=== PATIENT | male | born 1960 | race Hispanic/Latino ===

== ENCOUNTER 2020-09-16 15:13 | Emergency (ER) | payer SELFPAY ==
--- NOTE | 2020-09-16 15:58 | Event Note ---
ED Screening Note Date of service: 09/16/20 Time: 15:56 ED Screening Note: 59-year-old -[place] Citizen male presents to the emergency room for 2-week history of abdominal pain and constipation. Patient also admits to urinary retention denies any hematuria denies any penile discharge. Does report rectal pain pain but hard stool. He does have an appointment with a new provider on 09/30/2020. He states he is on blood pressure medication but unaware the name. His last prescribed by Patrick in [place]. Patient states he has tried [id number] milk of magnesia and Clair-[place]. This initial assessment/diagnostic orders/clinical plan/treatment(s) is/are subject to change based on patients health status, clinical progression and re- assessment by fellow clinical providers in the ED. Further treatment and workup at subsequent clinical providers discretion. Patient/guardian urged not to elope from the ED as their condition may be serious if not clinically assessed and managed. Initial orders include:
--- NOTE | 2020-09-16 16:42 | XRay Report ---
XR abdomen 1V ap INDICATION / CLINICAL INFORMATION: abd pain with constipation.. COMPARISON: None available. FINDINGS: TUBES / LINES: None. BOWEL GAS PATTERN: Nonobstructive bowel gas pattern. FREE AIR / EXTRALUMINAL GAS: None seen. ADDITIONAL FINDINGS: No significant additional findings. IMPRESSION: 1. No significant abnormality. Signer Name: Roge Cazares MD Signed: 09/16/2020 4:38 PM Workstation Name: [id number]
[2020-09-16 17:12] LABS: Basophils % (Auto) 0.7 % (0.0-1.8); Eosinophils # (Auto) 0.4 K/mm3 (0.0-0.4); Eosinophils % (Auto) 5.7 % (0.0-4.3); Hematocrit 47.1 % (35.5-45.6); Hemoglobin 15.9 gm/dl (11.8-15.2); Lymphocytes # (Auto) 2.2 K/mm3 (1.2-5.4); Lymphocytes % (Auto) 34.9 % (13.4-35.0); Mean Corpuscular HGB Conc 34 % (32-34); Mean Corpuscular Volume 91 fl (84-94); Monocytes # (Auto) 0.6 K/mm3 (0.0-0.8); Platelet Count 251 K/mm3 (140-440); Red Cell Distribution Width 14.1 % (13.2-15.2)
[2020-09-16 17:24] LABS: Albumin 4.5 g/dL (3.9-5); Calcium 9.6 mg/dL (8.4-10.2)
--- NOTE | 2020-09-16 19:22 | Emergency Department Report ---
HPI - General Chief Complaint: Abdominal Pain Time Seen by Provider: 09/16/20 19:09 - [facility] HPI: Room 35 The patient is a 59-year-old male present with a chief complaint of abdominal pain. Patient states he has had intermittent right-sided abdominal pain for the past year or so. Patient states he has not yet seen a physician about the symptoms. The patient states over the past 1.5 weeks the pain is returned and intermittent. Patient denies nausea vomiting or fever. Patient denies dysuria. Patient states his last bowel movement occurred yesterday and it was loose stool. The patient states the day before there was formed stool. Patient nuha munroe gives his pain score of 2/10 ED Past Medical Hx - Past Medical History Previous Medical History?: Yes Hx Hypertension: Yes - Surgical History Past Surgical History?: No - Family History Family history: no significant - Social History Smoking Status: Current Every Day Smoker (1/3 pack/day) Substance Use Type: Alcohol (Occasion), Marijuana - Medications Home Medications: Home Medications Medication Instructions Recorded Confirmed Last Taken Type Docusate Sodium [Colace] 100 mg PO BID PRN #30 capsule 09/16/20 Unknown Rx traMADoL [Ultram] 50 mg PO Q6HR PRN #10 tablet 09/16/20 Unknown Rx ED Review of Systems ROS: Stated complaint: STOMACH PROBLEM Other details as noted in HPI Constitutional: denies: fever Eyes: denies: eye pain ENT: denies: throat pain Respiratory: no symptoms reported Cardiovascular: denies: chest pain Endocrine: no symptoms reported Gastrointestinal: abdominal pain. denies: nausea, vomiting, diarrhea Genitourinary: denies: dysuria Musculoskeletal: denies: back pain Neurological: denies: headache Physical Exam - Physical Exam Vital Signs: Vital Signs 09/16/20 15:42 Temperature 98.8 F Pulse Rate 74 Respiratory 18 Rate Blood Pressure 161/105 O2 Sat by Pulse 96 Oximetry Physical Exam: GENERAL: The patient is well-developed well-nourished male lying on stretcher not appearing to be in acute distress. [] HEENT: Normocephalic. Atraumatic. Extraocular motions are intact. Patient has moist mucous membranes. NECK: Supple. Trachea midline CHEST/LUNGS: Clear to auscultation. There is no respiratory distress noted. HEART/CARDIOVASCULAR: Regular. There is no tachycardia. There is no gallop rub or murmur. ABDOMEN: Abdomen is soft, with trace discomfort to palpation in the right lower quadrant. There is no rebound or guarding. Patient has normal bowel sounds. There is no abdominal distention. SKIN: There is no rash. There is no edema. There is no diaphoresis. NEURO: The patient is awake, alert, and oriented. The patient is cooperative. The patient has no focal neurologic deficits. The patient has normal speech MUSCULOSKELETAL: There is no CVA tenderness. There is no evidence of acute injury. ED Course Vital Signs 09/16/20 15:42 Temperature 98.8 F Pulse Rate 74 Respiratory 18 Rate Blood Pressure 161/105 O2 Sat by Pulse 96 Oximetry ED Medical Decision Making - Lab Data Result diagrams: 09/16/20 16:41 09/16/20 16:41 - Radiology Data Radiology results: report reviewed (CT abdomen pelvis), image reviewed (CT abdomen pelvis) Findings [facility] [address] [place] [address] Cat Scan Report Signed Patient: DELIA TAI MR#: [id number] : 1960 Acct:[id number] Age/Sex: 59 / M ADM Date: 09/16/20 Loc: ED Attending Dr: Ordering Physician: JOHN AMADOR MD Date of Service: 09/16/20 Procedure(s): CT abdomen pelvis w con Accession Number(s): [id number] cc: JOHN AMADOR MD CT abdomen pelvis w con INDICATION / CLINICAL INFORMATION: Right lower quadrant abdominal pain. TECHNIQUE: Axial CT imaging of abdomen and pelvis was obtained with IV contrast. Coronal and sagittal reformatted imaging obtained and reviewed. All CT scans at this location are performed using CT dose reduction for ALARA by means of automated exposure control. COMPARISON: None available. FINDINGS: CT abdomen with contrast demonstrates normal appearance of the spleen, pancreas, right kidney, and adrenal glands. There is a 3.3 cm simple cyst arising from the lower pole of the left kidney. The left kidney is otherwise unremarkable. Within the liver, there is a small enhancing mass in the left lobe measuring 12 mm. This mass is nonspecific. I suspect it is a hemangioma, however. The remainder of the liver is grossly normal. Gallbladder is unremarkable. No biliary dilatation. CT pelvis with contrast does not demonstrate any pelvic mass or focal inflammatory change. A normal appendix is visualized in the right lower quadrant. GI tract is grossly unremarkable. Prostate gland is mildly enlarged. There is small amount of fluid in the right inguinal canal but no hernia containing bowel. Visualized lung bases are clear. No significant acute osseous abnormality noted. Mild degenerative disc disease present at L5-S1. IMPRESSION: 1. Small amount of fluid is seen in the inferior right inguinal canal. This may represent hydrocele extending superiorly. 2. The appendix is well-visualized and has a normal appearance. 3. Small enhancing mass is present in the left hepatic lobe, nonspecific. Statistically speaking, this is most likely a small hemangioma. Vascular metastases can also have this appearance, however.. 4. Simple cyst, left kidney. Signer Name: Monica Joy MD Signed: 09/16/2020 8:12 PM Workst ation Name: [id number] Transcribed By: Dictated By: Monica Joy MD Electronically Authenticated By: Monica Joy MD Signed Date/Time: 09/16/202011 DD/ 05 TD/TT: - Medical Decision Making CT findings discussed with patient. Need for follow-up stressed. - Differential Diagnosis Colitis, diverticulitis, appendicitis, UTI Critical care attestation.: If time is entered above; I have spent that time in minutes in the direct care of this critically ill patient, excluding procedure time. ED Disposition Clinical Impression: Abdominal pain Disposition: DC-01 TO HOME OR SELFCARE Is pt being admited?: No Does the pt Need Aspirin: No Condition: Stable Instructions: Abdominal Pain, Adult, [id number], Hydrocele, Adult Additional Instructions: Return to the emergency department should you develop worsening symptoms, inability to tolerate food or liquids, high fever or any other concerns Prescriptions: Docusate Sodium [Colace] 100 mg PO BID PRN #30 capsule PRN Reason: Constipation traMADoL [Ultram] 50 mg PO Q6HR PRN #10 tablet PRN Reason: Pain Referrals: [facility] [Provider Group] - 3-5 Days LOS CUMMINGS MD [Staff Physician] - 3-5 Days (Dr. Cummings is a adjunct professor of voice. Please follow-up with him for further evaluation) Time of Disposition: 21:30
[2020-09-16 19:49] LABS: Bilirubin,Urine NEG (Negative); Blood,Urine NEG (Negative); Color,Urine Yellow (Yellow); Mucus,Urine FEW /HPF; Protein,Urine <15 mg/dL mg/dL (Negative); Urobilinogen,Urine < 2.0 mg/dL (<2.0)
--- NOTE | 2020-09-16 20:17 | Cat Scan Report ---
CT abdomen pelvis w con INDICATION / CLINICAL INFORMATION: Right lower quadrant abdominal pain. TECHNIQUE: Axial CT imaging of abdomen and pelvis was obtained with IV contrast. Coronal and sagittal reformatte d imaging obtained and reviewed. All CT scans at this location are performed using CT dose reduction for ALARA by means of automated exposure control. COMPARISON: None available. FINDINGS: CT abdomen with contrast demonstrates normal appearance of the spleen, pancreas, right kidney, and ad renal glands. There is a 3.3 cm simple cyst arising from the lower pole of the left kidney. The left kidney is otherwise unremarkable. Within the liver, there is a small enhancing mass in the left lobe measuring 12 mm. This mass is nonspecific. I suspect it is a hemangioma, however. The remainder of th e liver is grossly normal. Gallbladder is unremarkable. No biliary dilatation. CT pelvis with contrast does not demonstrate any pelvic mass or focal inflammatory change. A normal a ppendix is visualized in the right lower quadrant. GI tract is grossly unremarkable. Prostate gland i s mildly enlarged. There is small amount of fluid in the right inguinal canal but no hernia containin g bowel. Visualized lung bases are clear. No significant acute osseous abnormality noted. Mild degenerative disc disease present at L5-S1. IMPRESSION: 1. Small amount of fluid is seen in the inferior right inguinal canal. This may represent hydrocele e xtending superiorly. 2. The appendix is well-visualized and has a normal appearance. 3. Small enhancing mass is present in the left hepatic lobe, nonspecific. Statistically speaking, thi s is most likely a small hemangioma. Vascular metastases can also have this appearance, however.. 4. Simple cyst, left kidney. Signer Name: Monica Joy MD Signed: 09/16/2020 8:12 PM Workstation Name: [id number]
[2020-09-16 22:08] VITALS: BP 144/94
== END 2020-09-16 22:00 | disposition home or self-care (01) ==
LOC: ED 15:13
DX: R10.9 Unspecified abdominal pain (principal); I10 Essential (primary) hypertension; Z79.899 Other long term (current) drug therapy
CPT/HCPCS: 36415; 74018; 74177; 80053; 81001; 85025; 99284; Q9967